=== PATIENT | female | born 2005 | race African-American/Black ===

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

== ENCOUNTER 2024-02-05 15:27 | Emergency (ER) | payer SELFPAY ==
[2024-02-05 16:14] LABS: Pregnancy Test - Urine (BHCG) POSITIVE (Negative); Pregu Control Background? CLEAR/WHITE (CLR/WHITE); Pregu Control Bar Appear? YES (CONTROL BAR); Specific Gravity 1.015 (1.002-1.036)
== END 2024-02-05 17:04 | disposition home or self-care (01) ==
LOC: CSHERS 15:27
DX: Z32.01 Encounter for pregnancy test, result positive (principal)
CPT/HCPCS: 81025

== ENCOUNTER 2025-05-29 21:32 | Emergency (ER) | payer SELFPAY ==
[2025-05-29] MEDS ORDERED: Ibuprofen 200 MG TAB ONE (22:27)
== END 2025-05-29 22:37 ==
LOC: CSHERS 21:32
DX: S63.502A Unspecified sprain of left wrist, initial encounter (principal); X50.1XXA Overexertion from prolonged static or awkward postures, initial encounter; Y93.89 Activity, other specified
CPT/HCPCS: 99283